=== PATIENT | male | born 1990 | race Caucasian/White ===

== ENCOUNTER 2025-01-03 00:32 | Emergency (ER) | payer OTHER ==
[~2025-01-03] VITALS: Ht 165.1 cm; Wt 70.0 kg
[2025-01-03 00:35] VITALS: O2SAT 96
[2025-01-03 01:17] VITALS: O2SAT 99
[2025-01-03] MEDS: ONDANSETRON HCL 4MG/2ML INJ IV STA (01:35)
[2025-01-03] MEDS: MORPHINE SULFATE 4 MG/ML INJ (FOR IV/IM USE) IV STA (01:35)
[2025-01-03] MEDS ORDERED: IBUP-2029 MT (04:34)
[2025-01-03 07:00] VITALS: BP 103/66; PULSE 99; RESP 18; TEMP 36.7
== END 2025-01-03 06:41 | disposition home or self-care (01) ==
LOC: ER 00:32
DX: S82.891A Other fracture of right lower leg, initial encounter for closed fracture (principal); X58.XXXA Exposure to other specified factors, initial encounter; S09.8XXA Other specified injuries of head, initial encounter; Y93.89 Activity, other specified; Y92.89 Other specified places as the place of occurrence of the external cause; Y99.8 Other external cause status
CPT/HCPCS: 73590; 73610; 70450; 70486; 29515; 99284; J2405; Z7610; J2270